=== PATIENT | female | born 1995 | race Caucasian/White ===

== ENCOUNTER 2017-09-19 15:38 | Inpatient (IN) | payer OTHER ==
[~2017-09-19] VITALS: Ht 162.6 cm; Wt 51.8 kg
[2017-09-19 16:56] VITALS: Ht 162.6 cm; Wt 51.8 kg
[2017-09-19 17:08] LABS: BASOPHILS 0 % (0-2); EOSINOPHILS 0.3 % (0-7); HEMATOCRIT 41.3 % (36.0-48.0); HEMOGLOBIN 14.1 g/dL (12-16); IMMATURE GRANULOCYTES 0.4 % (0-5); LYMPHOCYTES 9.5 % (15-50); MCH 30.2 pg (26.0-34.0); MCHC 34.1 g/dL (31.0-37.0); MCV 88.4 fL (80.0-100.0); MEAN PLATELET VOLUME 8.9 fL (7.4-10.4); MONOCYTES 1.9 % (2-11); NEUTROPHILS 87.9 % (40-80); PLATELET COUNT 239 10x3/uL (130-400); RBC 4.67 10x6/uL (4.00-5.40); RDW 12.1 % (11.5-14.5); WBC 10.1 10x3/uL (4.8-10.8)
--- NOTE | 2017-09-19 17:30 | NUR ---
IV SITED TO LEFT FOREARM X1 STICK USING ASEPTIC TECH,22G.
[2017-09-19 17:37] LABS: ALBUMIN 4.3 g/dL (3.4-5.0); ALKALINE PHOSPHATASE 55 U/L (46-116); ALT (SGPT) 21 U/L (10-68); BILIRUBIN - TOTAL 0.23 mg/dL (0.2-1.3); CALC OSMOLALITY 280 mosm/kg (275-300); CALCIUM 9.4 mg/dL (8.5-10.1); CARBON DIOXIDE 26.1 mmol/L (21.0-32.0); CHLORIDE - SERUM 104 mmol/L (98-107); CREATININE - SERUM 0.5 mg/dL (0.6-1.3); GLUCOSE 108 mg/dL (74-106); POTASSIUM - SERUM 4.1 mmol/L (3.5-5.1); PROTEIN - SERUM 7.8 g/dL (6.4-8.2); SODIUM 141 mmol/L (136-145); UREA NITROGEN 11 mg/dL (7-18); eGFR NON AFRICAN AMERICAN > 90 mL/min (90-120)
--- NOTE | 2017-09-19 21:54 | NUR ---
PRN COUGH SYRUP ADMINISTERED AT THIS TIME, PT C/O COUGH.
[2017-09-19 23:58] VITALS: BP 127/77
[2017-09-20 02:33] VITALS: BP 108/66
[2017-09-20 06:30] VITALS: BP 114/67
--- NOTE | 2017-09-20 07:15 | NUR ---
REPORT RECEIEVED, ASSUMED CARE OF PT. PT SITTING UP IN BED DOING AN UPDRAFT TREATMENT. MOM AT BEDSIDE. L FOREARM IV INFUSING FLUIDS ORDERED, DRSG C/D/I. NO NEEDS VOICED AT THIS TIME. BED IN LOWEST POSITION, SIDE RAILS UP X 2, CALL LIGHT WITHIN REACH.
[2017-09-20 08:08] VITALS: BP 120/65
[2017-09-20 12:22] VITALS: BP 118/66
[2017-09-20 16:01] VITALS: BP 122/60
--- NOTE | 2017-09-20 19:30 | NUR ---
PT RESTING QUIETLY WITH MOTHER AT BEDSIDE. STATES DULL ACHE ON LEFT SIDE, STATED "PROBABLY FROM COUGHING SO MUCH". IV LEFT FOREARM PATENT NS @ 125. DENIES ANY NEEDS AT THIS TIME. CALL LIGHT IN REACH, BED IN LOWEST POSITION. WILL CONTINUE WITH PLAN OF CARE.
[2017-09-20 20:00] VITALS: BP 122/85
--- NOTE | 2017-09-20 23:05 | NUR ---
PRN COUGH SYRUP ADMINISTERED AT THIS TIME.
[2017-09-21] VITALS: BP 99/54
[2017-09-21 04:46] LABS: BASOPHILS 0 % (0-2); EOSINOPHILS 0 % (0-7); HEMATOCRIT 39.3 % (36.0-48.0); HEMOGLOBIN 13.1 g/dL (12-16); IMMATURE GRANULOCYTES 0.2 % (0-5); LYMPHOCYTES 7.8 % (15-50); MCH 29.6 pg (26.0-34.0); MCHC 33.3 g/dL (31.0-37.0); MCV 88.9 fL (80.0-100.0); MEAN PLATELET VOLUME 8.9 fL (7.4-10.4); MONOCYTES 4.2 % (2-11); NEUTROPHILS 87.8 % (40-80); PLATELET COUNT 271 10x3/uL (130-400); RBC 4.42 10x6/uL (4.00-5.40)
[2017-09-21 04:47] LABS: WBC 13.6 10x3/uL (4.8-10.8)
[2017-09-21 05:14] LABS: CALCIUM 9.3 mg/dL (8.5-10.1); CHLORIDE - SERUM 106 mmol/L (98-107); MAGNESIUM - SERUM 2.1 mg/dL (1.8-2.4); PHOSPHOROUS 3.3 mg/dL (2.5-4.9); SODIUM 140 mmol/L (136-145); THYROID STIMULATING HORMONE 0.67 uIU/mL (0.36-3.74)
[2017-09-21 05:16] LABS: CALC OSMOLALITY 280 mosm/kg (275-300); CREATININE - SERUM 0.7 mg/dL (0.6-1.3); GLUCOSE 168 mg/dL (74-106); POTASSIUM - SERUM 4.9 mmol/L (3.5-5.1); UREA NITROGEN 7 mg/dL (7-18); eGFR NON AFRICAN AMERICAN > 90 mL/min (90-120)
[2017-09-21 08:20] LABS: IMMUNOGLOBULIN E 9 IU/mL (0-100)
[2017-09-21 08:23] VITALS: BP 129/80
--- NOTE | 2017-09-21 08:49 | NUR ---
PT AOX4 RESP EVEN AND NONLABORED PT DENIES NEEDS AT THIS TIME IV TO LEFT FOREARM PATENT AND INTACT AT THIS TIME SRX2 BED AT LOWEST SETTING CALL LIGHT WITHIN REACH WILL CONTINUE TO MONITOR
[2017-09-21 11:18] LABS: IMMUNOGLOBULIN A 101 mg/dL (87-352); IMMUNOGLOBULIN G 890 mg/dL (700-1600)
[2017-09-21 12:34] VITALS: BP 112/75
[2017-09-21 16:29] VITALS: BP 121/76
--- NOTE | 2017-09-21 19:00 | NUR ---
REPORT RECEIVED AND CARE OF PT ASSUMED. PT LYING IN HIGH ANGLIN'S POSITION VISITING WITH FAMILY MEMBRS. IV IN LEFT FA PATENT WITH NS INFUSING AT 70 ML / HR. TELEMETRY IN PLACE AND READING 68 SR AT THIS ASSESSMENT. WILL MONITOR CLOSELY FOR NEEDS. MOTHER IS AT BEDSIDE.
[2017-09-21 20:00] VITALS: BP 123/85
--- NOTE | 2017-09-21 20:54 | NUR ---
HS MEDICATIONS GIVEN TO INCLUDE PHENERGAN W/ CODEINE SYRUP FOR C/O CHEST AND ABDOMINAL DISCOMFORT. WILL CONTINUE TO MONITOR FOR NEEDS.
[2017-09-22] VITALS: BP 107/56
--- NOTE | 2017-09-22 02:57 | NUR ---
PT SLEEPING ON RIGHT SIDE WITH EYES CLOSED AND EASY RESPIRATIONS. MOTHER IS AT BEDSIDE. WILL CONTINUE TO MONITOR FOR NEEDS.
[2017-09-22 08:40] VITALS: BP 123/78
--- NOTE | 2017-09-22 09:02 | NUR ---
PT AOX4 RESP EVEN AND NONLABORED PT DENIES NEEDS AT THIS TIME IV TO LEFT FOREARM PATENT AND INTACT SRX2 BED AT LOWEST SETTING CALL LIGHT WITHIN REACH WILL CONTINUE TO MONITOR
[2017-09-22 12:11] VITALS: BP 115/79
[2017-09-22 15:44] VITALS: BP 121/79
--- NOTE | 2017-09-22 19:00 | NUR ---
REPORT RECEIVED AND CARE OF PT ASSUMED. PT SITTING UP IN BED WATCHING TV. IV IN LEFT FA PATENT WITH NS INFSUING AT 50 ML / HR. TELEMETRY IN PLACE AND READING 78 SR AT THIS ASSESSMENT. LUNGS SOUNDS CLEAR BUT DIMINISHED. WILL MONITOR CLOSLEY FOR NEEDS. CALL LIGHT WITHIN REACH.
--- NOTE | 2017-09-22 20:50 | NUR ---
HS MEDICATIONS GIVEN TO INCLUDE PHENERGAN / CODEINE COUGH SYRUP PER REQUEST. WILL CONTINUE TO MONITOR FOR NEEDS.
[2017-09-22 21:25] VITALS: BP 113/73
[2017-09-23 00:27] VITALS: BP 113/61
--- NOTE | 2017-09-23 00:58 | NUR ---
IV FLUIDS DISCONTINUED PER ORDER. WILL CONTINUE TO MONITOR FOR NEEDS.
[2017-09-23 05:53] VITALS: BP 106/62
[2017-09-23 08:33] VITALS: BP 113/71
--- NOTE | 2017-09-23 09:51 | NUR ---
PT AOX4 RESP EVEN AND NONLABORED PT DENIES NEEDS AT THIS TIME IV TO LEFT FOREARM PATENT AND INTACT AT THIS TIME SRX2 BED AT LOWEST SETTING CALL LIGHT WIHTIN REACH WILL CONTINUE TO MONITOR
[2017-09-23] MEDS ORDERED: OMNICEF300 MG PO (11:26)
[2017-09-23] MEDS ORDERED: VIBRAMYCIN 100100 MG PO (11:26)
[2017-09-23] MEDS ORDERED: PREDNISONE20 MG PO (11:28)
[2017-09-23] MEDS ORDERED: XOPENEX HFA15 GM INH (11:29)
[2017-09-23 12:21] VITALS: BP 111/76
--- NOTE | 2017-09-23 13:33 | NUR ---
IV DISCONTINUED WITH CATHETER INTACT AT AT THIS TIME PT GIVEN DISCHARGE INSTRUCTIONS AND TAKEN VIA WHEELCHAIR VIA PRIVATE VEHICLE AT THIS TIME
--- NOTE | 2017-09-23 14:28 | DS ---
PATIENT:CHUCHO KOO :[birth year] MEDICAL RECORD: [id number] DISCHARGE SUMMARY ADMISSION DATE: 09/20/17 DISCHARGE DATE: 09/23/17 DATE OF ADMISSION: 09/19/2017. DATE OF DISCHARGE: 09/23/2017. ADMISSION DIAGNOSES: 1. Asthmatic bronchitis. 2. Allergic rhinitis. 3. Sinusitis. 4. Cough. DISCHARGE DIAGNOSES: 1. Asthmatic bronchitis. 2. Allergic rhinitis. 3. Sinusitis. 4. Cough. 5. Tachycardic reaction to albuterol. HOSPITAL COURSE: The patient had an uneventful hospital course, was admitted with failed outpatient treatment for her asthmatic bronchitis. Pulmonology consulted Dr. Odonnell. The patient has had significant improvement, had been cleared for discharge. She did have a tachycardic episode after albuterol nebulizer was changed to Xopenex, no recurrent reactions. The patient and mother anxious for discharge and agree with plan. DISCHARGE MEDICATIONS: Per med rec. PHYSICAL EXAMINATION: VITAL SIGNS ON DISCHARGE: Temperature 98.2, blood pressure 113/71, heart rate 104, respirations 16, O2 sats 99% room air. Alert and oriented. HEART: Regular rate and rhythm. LUNGS: Clear. ABDOMEN: Soft. EXTREMITIES: Present times 4. NEUROLOGIC: Intact. See chart for further details. TRANSINT:[id number] Voice Confirmation ID: [id number] DOCUMENT ID: [id number] MODESTO MONTANO DO at 1428 CC: [id number] DICTATION DATE: 09/23/17 1135 CRAB STEAMER: 09/23/17 1259 DIS IN 09/23/[address] [address]
--- NOTE | 2017-09-24 13:30 | CN ---
PATIENT NAME:CHUCHO KOO MEDICAL RECORD: [id number] : [birth year] LOCATION:[facility] ADMIT DATE: 09/20/17 ACCOUNT: [id number] CONSULTING PHYSICIAN: RAJAN ARRIAGA MD REFERRING PHYSICIAN: RADHA SILVA DO DATE OF CONSULTATION: 09/21/2017 HISTORY OF PRESENT ILLNESS: A 22-year-old female with no known cardiovascular history. She reports intermittent palpitations, usually these are self-limited, has noticed some heart racing as of late, has been treated for allergic rhinitis, and admitted after failed antibiotics as an outpatient, was given some steroids at that time. No history of heart murmur. No orthopnea, PND, no sustained arrhythmias. We are asked to see her concerning his cardiovascular status. PAST MEDICAL HISTORY: Includes a history of reactive airway disease only. MEDICATIONS: None scheduled. ALLERGIES: ADHESIVE TAPE. SOCIAL HISTORY: She is a nonsmoker. Exercises minimally. She is currently a patient care nursing assistant. REVIEW OF SYSTEMS: The patient reports easy bruising but reports no swollen glands. The patient reports no fever, no night sweats, no significant weight gain, no significant weight loss. No significant exercise tolerance. The patient reports no dry eyes, no irritation, no vision change. Patient reports no difficulty hearing and no ear pain. Patient reports no frequent nose bleeds or nose and sinus problems. Patient reports on arm pain on exertion. No shortness of breath while lying down. No history of heart murmur. Patient reports no cough, no wheezing or coughing up blood. Patient reports no abdominal pain, no vomiting. Normal appetite. No diarrhea and not vomiting blood. No nausea and no constipation. Patient reports no incontinence. No difficulty urinating. No hematuria. No increased frequency. Patient reports no muscle aches. No weakness, no arthralgias, no back pain. No swelling of the extremities. Patient reports no abnormal mole, no jaundice, no rashes. Reports no loss of consciousness. No weakness and no numbness. No seizures, dizziness, or headaches. The patient reports no depression, no sleep disturbance, feeling safe in a relationship and no alcohol abuse. Patient reports on fatigue. Reports no runny nose or sinus pressure. No itching, no hives, and no frequent sneezing. PHYSICAL EXAMINATION: GENERAL: Pleasant female, appears stated age. VITAL SIGNS: Blood pressure 129/80, pulse currently 97. HEENT: Normocephalic, atraumatic. NECK: No bruits are noted. HEART: Regular, mildly tachy. I hear no murmurs. LUNGS: Good air excursion, mild expiratory wheeze. ABDOMEN: Soft, nontender. EXTREMITIES: Pulse 2+. No edema. NEUROLOGIC: Grossly intact. IMPRESSION: Sinus tachycardia, I suspect multifactorial including current CONSULT REPORT [id number] CHUCHO KOO illness and treatments. She is minimally asymptomatic. Will check echocardiographic study. Of note, thyroid level was normal. Unless become more symptomatic, we would not treat the primary tachycardia at this point. TRANSINT:[id number] Voice Confirmation ID: [id number] DOCUMENT ID: [id number] RAJAN ARRIAGA MD at 1330 CC: [id number] DICTATION DATE: 09/21/17 1142 SATELLITE COMMUNICATIONS OPERATOR: 09/21/17 1204 DIS IN 09/23/17 [id number] [place] [address]
--- NOTE | 2017-09-28 14:14 | EC ---
PATIENT:CHUCHO KOO DATE OF SERVICE: 09/20/17 SEX: F MEDICAL RECORD: [id number] DATE OF : [birth year] LOCATION:[facility] AGE OF PATIENT: 22 ADMISSION DATE: 09/19/17 REFERRING PHYSICIAN: INTERPRETING PHYSICIAN: DEANNE SANCHEZ MD ECHOCARDIOGRAM REPORT ECHO CHARGES 4 ECHO COMPLETE CLINICAL DIAGNOSIS: TACHYCARDIA ECHOCARDIOGRAPHIC MEASUREMENTS (adult normal given) AC root (d.<3.7cm) 2.9 cm LV Septum d (<1.2 cm> 1.1 cm Valve Excursion 1.8 cm LV Septum (systole) 1.4 cm Left Atria (s.<4.0cm> 3.2 cm LVPW d(<1.2cm) 0.9 cm RV (d.<2.3cm) 1.7 cm LVPW (sytole) 1.6 cm LV diastole(<5.6CM) 4.7 cm MV E-F(>70mm/sec) cm LV systole 2.4 cm LVOT Diameter 1.7 cm MV exc.(>10mm) cm Est.ejection fraction (50-75%) % Pericardial Effusion N DOPPLER: LVIT cm/sec A 63.0 cm/sec E 100 cm/sec LA cm/sec RVSP 30.4 mmHg LVOT 127 cm/sec AOP1/2T m/s Asc. Ao 178 cm/sec RVOT 85.0 cm/sec RA cm/sec PA 119 cm/sec AV Gradient Peak 13.0 mmHg AV Mean 5.6 mmHg AV Area 1.3 cm MV Gradient Peak 5.1 mmHg MV Mean 1.8 mmHg MV Area cm COMMENTS: Sand Slinger Operator: Gena CURTISOE [employer] Electrical Foreman: 3 Dr. Harmon TAPE# PACS DATE OF SERVICE: 09/21/2017 FINDINGS: 1. Left ventricular chamber size is within normal limits. Left ventricular systolic function is normal. Overall ejection fraction estimated at 60%. 2. Left atrium, right atrium, and right ventricle chamber sizes are within normal limits. 3. Valvular structures have normal structure and motion. 4. Doppler interrogation reveals trace aortic insufficiency, trace mitral regurgitation, trace tricuspid regurgitation. No other valvular insufficiency ECHOCARDIOGRAM REPORT [id number] CHUCHO KOO or stenosis. Pulmonary systolic pressure is normal estimated 30 mmHg. 5. No evidence of pericardial effusion or left ventricular thrombus. TRANSINT:[id number] Voice Confirmation ID: [id number] DOCUMENT ID: [id number] DEANNE SANCHEZ MD at 1414 CC: [id number] DICTATION DATE: 09/24/17 1233 PAYMENT PROCESSOR: 09/24/17 1238 DIS IN 09/23/17 [id number] [place] [address]
== END 2017-09-23 13:35 | disposition home or self-care (01) | DRG 203 ==
LOC: OBSVTIME → UNDOADMOB 15:38 → D.MS 15:38 → OBSVTIME 15:42 → D.MS 09-20 09:48
PROVIDERS: Internal Medicine Pulmonary Disease; ADMIT Family Medicine
DX: J45.901 Unspecified asthma with (acute) exacerbation (principal); J32.9 Chronic sinusitis, unspecified; K58.0 Irritable bowel syndrome with diarrhea; R00.0 Tachycardia, unspecified

== ENCOUNTER → 2017-10-22 13:43 | Outpatient (CLI) | payer OTHER ==
[2017-09-19 16:56] VITALS: BMI 19.6
[~2017-10-22 13:43] MED LIST: OMNICEF300 MG PO; PREDNISONE20 MG PO; VIBRAMYCIN 100100 MG PO; XOPENEX HFA15 GM INH
[2017-10-24 04:13] LABS: IGG SUBCLASS 1 658 mg/dL (248-810); IGG SUBCLASS 2 303 mg/dL (130-555); IGG SUBCLASS 3 39 mg/dL (15-102); IGG SUBCLASS 4 23 mg/dL (2-96)
[2017-10-24 14:22] LABS: A TITER Not indicated. (()); BLOOD GROUPING A (())
[2017-10-24 16:13] LABS: ANCA - ANTIMYELOPEROXIDASE <9.0 U/mL (0.0-9.0); ANCA - ANTIPROTEINASE 3 <3.5 U/mL (0.0-3.5); ANCA - ATYPICAL <1:20 titer (Neg:<1:20); ANCA - CYTOPLASMIC <1:20 titer (Neg:<1:20); ANCA - PERINUCLEAR <1:20 titer (Neg:<1:20)
[2017-10-25 14:20] LABS: IMMUNOGLOBULIN A 126 mg/dL (87-352); IMMUNOGLOBULIN G 967 mg/dL (700-1600); IMMUNOGLOBULIN M 214 mg/dL (26-217)
== END | disposition home or self-care (01) ==
LOC: D.LAB 13:43
PROVIDERS: Allergy & Immunology
DX: J32.9 Chronic sinusitis, unspecified (principal)

== ENCOUNTER → 2018-08-13 16:22 | Outpatient (CLI) | payer OTHER, BC ==
[2017-09-19 16:56] VITALS: BMI 19.6
[2018-09-02 10:54] LABS: T-TRANSGLUTAMINASE IGG 17 High
== END | disposition home or self-care (01) ==
LOC: D.LAB 16:22
PROVIDERS: Internal Medicine Gastroenterology
DX: R10.13 Epigastric pain (principal); R11.0 Nausea; R19.7 Diarrhea, unspecified